=== PATIENT | female | born 1955 | race Caucasian/White ===

== ENCOUNTER 2017-12-28 15:20 | Emergency (ER) | payer BC ==
[~2017-12-28] VITALS: Ht 175.2 cm; Wt 74.8 kg
[2017-12-28] MEDS ORDERED: NORCO 5-325 TA1 EACH PO (17:05)
== END 2017-12-28 17:09 | disposition home or self-care (01) ==
LOC: ED 15:20
DX: S22.41XA Multiple fractures of ribs, right side, initial encounter for closed fracture (principal); Z88.2 Allergy status to sulfonamides; W01.198A Fall on same level from slipping, tripping and stumbling with subsequent striking against other object, initial encounter; Y93.89 Activity, other specified; Y92.89 Other specified places as the place of occurrence of the external cause; Y99.9 Unspecified external cause status